=== PATIENT | male | born 1975 | race Caucasian/White ===

== ENCOUNTER 2016-09-06 22:02 | Emergency (ER) | payer MEDICAID ==
[~2016-09-06] VITALS: Ht 170.2 cm; Wt 70.5 kg
[2016-09-06] MEDS ORDERED: AMOX1TAB15 PO (22:19)
[2016-09-06] MEDS ORDERED: IBUP-2070 PO (22:19)
[2016-09-06 22:41] VITALS: BP 118/81
[2016-09-06] MEDS ORDERED: PredniSONE 20 MG TABLET PO ONE (23:30)
[2016-09-06] MEDS ORDERED: DiphenhydrAMINE HCL 25 MG CAPSULE PO ONE (23:30)
== END 2016-09-07 00:08 | disposition home or self-care (01) ==
LOC: EMS 22:06
DX: N50.89 Other specified disorders of the male genital organs (principal)
CPT/HCPCS: 99283; J7512